=== PATIENT | male | born 1960 | race Two or more races ===

== ENCOUNTER 2023-07-03 17:29 | Inpatient (IN) | payer MEDICARE, OTHER ==
[~2023-07-03] VITALS: Ht 188 cm; Wt 89.8 kg
[2023-07-03] MEDS ORDERED: LIDOCAINE VISCOUS 2% UD 15 ML UDC MM ONE (19:30)
[2023-07-03] MEDS ORDERED: FAMOTIDINE (20 MG) 20 MG TABLET PO ONE (19:30)
[2023-07-03] MEDS ORDERED: MAG HYDROX/AL HYDROX/SIMETH 30 ML UDC PO ONE (19:30)
[2023-07-03] MEDS ORDERED: MAG HYDROX/AL HYDROX/SIMETH 30 ML UDC ONE (19:36)
[2023-07-03] MEDS ORDERED: LIDOCAINE VISCOUS 2% UD 15 ML UDC ONE (19:37)
[2023-07-03] MEDS ORDERED: FAMOTIDINE/PF INJ 20 MG/2 ML VIAL IV ONE (19:37)
[2023-07-03] MEDS ORDERED: FAMOTIDINE (20 MG) 20 MG TABLET ONE (19:38)
[2023-07-03 19:55] LABS: BASOPHILS % (AUTO) 0.6 % (0.0-2.0); EOSINOPHILS # (AUTO) 0.1 K/uL (0.0-0.7); EOSINOPHILS % (AUTO) 1.7 % (0.0-6.0); HEMATOCRIT 46 % (39-51); HEMOGLOBIN 15.9 g/dL (13.5-17.5); LYMPHOCYTES # (AUTO) 2.4 K/uL (0.8-4.8); LYMPHOCYTES % (AUTO) 30.6 % (20.0-44.0); MEAN CORPUSCULAR HEMOGLOBIN 32 PG (26.0-33.0); MEAN CORPUSCULAR HGB CONC 35 g/dl (31.0-36.0); MEAN CORPUSCULAR VOLUME 94 fL (80-96); MONOCYTES # (AUTO) 0.6 K/uL (0.1-1.30); MONOCYTES % (AUTO) 7.2 % (2.0-12.0); NEUTROPHILS # (AUTO) 4.6 K/uL (1.8-8.9); NEUTROPHILS % (AUTO) 59.9 % (43.0-81.0); PLATELET COUNT (AUTO) 214 K/uL (150-450); RED BLOOD CELL COUNT(AUTO) 4.93 MIL/uL (4.5-6.0); RED CELL DISTRIBUTION WIDTH 12.9 % (11.5-15.0); WHITE BLOOD COUNT (AUTO) 7.7 K/uL (4.3-11.0)
[2023-07-03 20:06] LABS: INR 0.97 (0.91-1.10); PARTIAL THROMBOPLASTIN TIME 25.9 SEC (24.3-34.3); PROTHROMBIN TIME 10.2 SECS (9.2-11.1)
[2023-07-03 20:19] LABS: CALCIUM, SERUM 9.1 mg/dL (8.5-10.1); CREATININE 0.8 mg/dL (0.6-1.3)
[2023-07-03 20:24] LABS: ALBUMIN 3.6 g/dL (3.4-5.0); BILIRUBIN,DIRECT 0.1 mg/dL (0.0-0.2); BILIRUBIN,TOTAL 0.3 mg/dL (0.2-1.0); TOTAL PROTEIN, SERUM 7.2 g/dL (6.4-8.2)
[2023-07-03 21:40] VITALS: O2SAT 99
[2023-07-03] MEDS ORDERED: IV NS 0.9% 1,000 ML IV PRN (22:00)
[2023-07-03] MEDS ORDERED: MAGNESIUM HYDROXIDE 30 ML UDC PO PRN (22:00)
[2023-07-03] MEDS ORDERED: Z GUARD REMEDY 4 OZ OINT TP PRN (22:00)
[2023-07-03] MEDS ORDERED: ZOLPIDEM TARTRATE 5 MG TABLET PO PRN (22:00)
[2023-07-03] MEDS ORDERED: ACETAMINOPHEN 325 MG TABLET PO PRN (22:00)
[2023-07-03] MEDS ORDERED: ONDANSETRON HCL/PF 4 MG/2 ML VIAL IVP PRN (22:00)
[2023-07-03] MEDS ORDERED: MAG HYDROX/AL HYDROX/SIMETH 30 ML UDC PO PRN (22:00)
[2023-07-03 23:15] VITALS: BP 110/77; TEMP 97.6; O2SAT 96
[2023-07-04 06:48] LABS: BASOPHILS # (AUTO) 0.1 K/uL (0.0-0.2); BASOPHILS % (AUTO) 0.9 % (0.0-2.0); EOSINOPHILS # (AUTO) 0.2 K/uL (0.0-0.7); EOSINOPHILS % (AUTO) 2.5 % (0.0-6.0); HEMATOCRIT 43 % (39-51); HEMOGLOBIN 14.8 g/dL (13.5-17.5); LYMPHOCYTES # (AUTO) 2.6 K/uL (0.8-4.8); LYMPHOCYTES % (AUTO) 37.8 % (20.0-44.0); MEAN CORPUSCULAR HEMOGLOBIN 32 PG (26.0-33.0); MEAN CORPUSCULAR HGB CONC 34 g/dl (31.0-36.0); MEAN CORPUSCULAR VOLUME 94 fL (80-96); MONOCYTES # (AUTO) 0.5 K/uL (0.1-1.30); MONOCYTES % (AUTO) 7.1 % (2.0-12.0); NEUTROPHILS # (AUTO) 3.5 K/uL (1.8-8.9); NEUTROPHILS % (AUTO) 51.7 % (43.0-81.0); PLATELET COUNT (AUTO) 208 K/uL (150-450); RED BLOOD CELL COUNT(AUTO) 4.63 MIL/uL (4.5-6.0); RED CELL DISTRIBUTION WIDTH 13.2 % (11.5-15.0); WHITE BLOOD COUNT (AUTO) 6.8 K/uL (4.3-11.0)
[2023-07-04 06:53] LABS: ALBUMIN 3.3 g/dL (3.4-5.0); BILIRUBIN,TOTAL 0.5 mg/dL (0.2-1.0); CALCIUM, SERUM 8.6 mg/dL (8.5-10.1); CREATININE 0.6 mg/dL (0.6-1.3); MAGNESIUM 2.7 mg/dL (1.8-2.4); POTASSIUM 3.8 mmol/L (3.5-5.1); TOTAL PROTEIN, SERUM 6.5 g/dL (6.4-8.2)
[2023-07-04 07:06] LABS: THYROID STIMULATING HORMONE 1.252 uIU/mL (0.358-3.74)
[2023-07-04] MEDS ORDERED: INSU100V7 SQ (07:38)
[2023-07-04] MEDS ORDERED: ACET-868 PO (07:38)
[2023-07-04] MEDS ORDERED: MULT-447 PO (07:38)
[2023-07-04] MEDS ORDERED: ACET-2605 PO (07:38)
[2023-07-04] MEDS ORDERED: SEMA1PEN SQ (07:38)
[2023-07-04] MEDS ORDERED: BISA10SU11 RC (07:38)
[2023-07-04] MEDS ORDERED: MAGN400O6 PO (07:38)
[2023-07-04] MEDS ORDERED: FAMO20TA8 PO (07:38)
[2023-07-04] MEDS ORDERED: ASPI-1169 PO (07:38)
[2023-07-04] MEDS ORDERED: LISI20TA30 PO (07:38)
[2023-07-04] MEDS ORDERED: CANA100T PO (07:38)
[2023-07-04] MEDS ORDERED: MECL-159 PO (07:38)
[2023-07-04] MEDS ORDERED: NA P133E RC (07:38)
[2023-07-04] MEDS ORDERED: MAG30ORA PO (07:38)
[2023-07-04] MEDS ORDERED: ATOR40TA PO (07:38)
[2023-07-04 08:00] VITALS: BP 111/70; O2SAT 94
[2023-07-04] MEDS: PANTOPRAZOLE 40 MG VIAL IV SCH (08:35)
[2023-07-04] MEDS: IV NS 0.9% 1,000 ML IV SCH (09:01)
[2023-07-04 15:00] VITALS: BP 123/80; TEMP 98.3; O2SAT 97
[2023-07-04 19:15] VITALS: BP 132/78; TEMP 98.6; O2SAT 97
[2023-07-05] MEDS: IV NS 0.9% 1,000 ML IV SCH (02:52)
[2023-07-05 05:53] LABS: BASOPHILS % (AUTO) 0.7 % (0.0-2.0); EOSINOPHILS # (AUTO) 0.2 K/uL (0.0-0.7); HEMATOCRIT 44 % (39-51); HEMOGLOBIN 15.1 g/dL (13.5-17.5); LYMPHOCYTES # (AUTO) 2.2 K/uL (0.8-4.8); LYMPHOCYTES % (AUTO) 36.7 % (20.0-44.0); MEAN CORPUSCULAR HEMOGLOBIN 32 PG (26.0-33.0); MEAN CORPUSCULAR HGB CONC 34 g/dl (31.0-36.0); MEAN CORPUSCULAR VOLUME 94 fL (80-96); MONOCYTES # (AUTO) 0.4 K/uL (0.1-1.30); MONOCYTES % (AUTO) 6.1 % (2.0-12.0); NEUTROPHILS # (AUTO) 3.2 K/uL (1.8-8.9); NEUTROPHILS % (AUTO) 53.5 % (43.0-81.0); PLATELET COUNT (AUTO) 197 K/uL (150-450); RED BLOOD CELL COUNT(AUTO) 4.71 MIL/uL (4.5-6.0); RED CELL DISTRIBUTION WIDTH 12.9 % (11.5-15.0); WHITE BLOOD COUNT (AUTO) 5.9 K/uL (4.3-11.0)
[2023-07-05 06:20] LABS: CALCIUM, SERUM 9.2 mg/dL (8.5-10.1); CREATININE 0.6 mg/dL (0.6-1.3); POTASSIUM 4.2 mmol/L (3.5-5.1)
[2023-07-05 08:31] VITALS: BP 136/85; TEMP 98.1; O2SAT 97
[2023-07-05] MEDS: PANTOPRAZOLE 40 MG VIAL IV SCH (08:32)
[2023-07-05] MEDS ORDERED: BISACODYL SUPP (10 MG) 10 MG/SUPP.RECT SUPP.RECT RC PRN (09:30)
[2023-07-05] MEDS ORDERED: ACETAMINOPHEN 325 MG TABLET PO PRN (09:30)
[2023-07-05] MEDS ORDERED: NA PHOS,M-B/NA PHOS,DI-BA 1 EA ENEMA RC PRN (09:30)
[2023-07-05 15:46] VITALS: BP 119/74; TEMP 98.3; O2SAT 96
[2023-07-05 20:00] VITALS: BP 118/80; TEMP 98.2; O2SAT 97
[2023-07-05] MEDS ORDERED: ATORVASTATIN 40 MG TABLET PO SCH (22:00)
[2023-07-06 08:20] VITALS: BP 136/72; TEMP 97.8; O2SAT 96
[2023-07-06] MEDS: MUPIROCIN OINT 2% 22 GM TUBE NS SCH ×2 (09:00→12:52)
[2023-07-06] MEDS ORDERED: FAMOTIDINE (20 MG) 20 MG TABLET PO SCH (09:00)
[2023-07-06] MEDS ORDERED: LISINOPRIL (20MG) 20 MG TABLET PO SCH (09:00)
[2023-07-06] MEDS ORDERED: ASPIRIN 81 MG TAB.CHEW PO SCH (09:00)
[2023-07-06] MEDS ORDERED: PANTOPRAZOLE 40 MG TABLET.DR PO SCH (09:00)
[2023-07-06 16:20] VITALS: BP 110/72; TEMP 97.9; TEMP 99; O2SAT 99
== END 2023-07-06 18:28 | DRG 640 ==
LOC: ER 17:34 → MED 22:35
PROVIDERS: ADMIT Nurse Practitioner Acute Care; ATTEND Nurse Practitioner Acute Care
DX: E86.0 Dehydration (principal); G93.41 Metabolic encephalopathy; R62.7 Adult failure to thrive; E87.20 Acidosis, unspecified; I10 Essential (primary) hypertension; Z79.4 Long term (current) use of insulin; Z79.84 Long term (current) use of oral hypoglycemic drugs; Z86.73 Personal history of transient ischemic attack (TIA), and cerebral infarction without residual deficits; F99 Mental disorder, not otherwise specified; E11.65 Type 2 diabetes mellitus with hyperglycemia
CPT/HCPCS: 36415; 71045-TC; 80048-TC; 80053-TC; 80076-TC; 83690-TC; 83735-TC; 84100-TC; 84443-TC; 85025-TC; 85730-TC; 87081-TC; 92526; 92611-TC; A4223; C9113; G0378; J3490; J7030